=== PATIENT | female | born 1990 | race Caucasian/White ===

== ENCOUNTER 2017-06-11 05:53 | Outpatient (CLI) | payer OTHER ==
[2017-06-11 06:08] VITALS: BP 143/82
[2017-06-11] MEDS ORDERED: SYNTHROID100 MCG PO (07:00)
[2017-06-11] MEDS ORDERED: PRENATAL VITAM1 EA11 PO (07:00)
[2017-06-11 07:10] VITALS: BP 136/60
[2017-06-11 09:43] VITALS: BP 131/66
== END 2017-06-11 11:40 | disposition home or self-care (01) ==
LOC: LDRP-OP 05:53 → 2WEST 05:54 → LDRP-OP 07-09 11:16
DX: O47.1 False labor at or after 37 completed weeks of gestation (principal); Z3A.40 40 weeks gestation of pregnancy; O99.283 Endocrine, nutritional and metabolic diseases complicating pregnancy, third trimester; E06.3 Autoimmune thyroiditis; Z83.3 Family history of diabetes mellitus
CPT/HCPCS: 59025; G0378

== ENCOUNTER 2017-06-12 02:06 | Inpatient (IN) | payer OTHER ==
[~2017-06-12] VITALS: Ht 162.6 cm; Wt 71.0 kg
[2017-06-12] VITALS (28 sets, daily range): BP systolic 102–143; BP diastolic 55–91
[~2017-06-12 02:06] MED LIST: PRENATAL VITAM1 EA11 PO; SYNTHROID100 MCG PO
[2017-06-12 07:43] LABS: BASOPHIL (%) 0.4 % (0-1); BASOPHIL COUNT 0.1 K/uL (0-0.1); EOSINOPHIL COUNT 0.1 K/uL (0-0.3); HEMATOCRIT 37.7 % (36.0-46.0); HEMOGLOBIN 12.8 G/DL (11.9-15.5); IMMATURE GRANULOCYTE (%) 0.7 % (0.0-0.7); LYMPHOCYTE (%) 12.1 % (15-42); LYMPHOCYTE COUNT 1.6 K/uL (1.0-2.8); MCH 29.4 PG (29.0-34.0); MCV 86.7 FL (83-99); MONOCYTE (%) 4.5 % (3-12); MONOCYTE COUNT 0.6 K/uL (0-0.8); NEUTROPHIL (%) 81.3 % (45-76); NEUTROPHIL COUNT 10.5 K/uL (1.8-6.4); PLATELET COUNT 184 K/uL (156-360); RBC DIS.WIDTH-CV 13.3 % (11.8-14.6); RBC DIS.WIDTH-SD 41.1 % (39-53); RED BLOOD COUNT 4.35 M/uL (3.80-5.20); WHITE BLOOD COUNT 12.9 K/uL (4.1-10.2)
[2017-06-12 08:15] LABS: ALBUMIN 3.4 G/DL (3.2-4.8); ALKALINE PHOSPHATASE 188 IU/L (3-129); ALT (GPT) 30 IU/L (3-49); AST (GOT) 19 IU/L (2-34); CHLORIDE 107 MEQ/L (99-109); CREATININE 0.5 MG/DL (0.6-1.3); GFR ESTIMATE (CALCULATED) > 59 mL/min/; GLUCOSE 83 mg/dL (70-99); POTASSIUM 3.9 MEQ/L (3.7-5.4); SODIUM 139 MEQ/L (136-147); TOTAL BILIRUBIN 0.6 MG/DL (0.0-1.0); TOTAL PROTEIN 5.9 G/DL (6.4-8.3); UREA NITROGEN (BUN) 6 mg/dL (9-23); URIC ACID 4.7 mg/dL (3.1-9.2)
[2017-06-12 11:24] LABS: BILIRUBIN NEGATIVE; BLOOD NEGATIVE; COLOR YELLOW ((YELLOW)); GLUCOSE (STRIP) NEGATIVE; KETONES NEGATIVE; LEUKOCYTES NEGATIVE; NITRITE NEGATIVE; PROTEIN (STRIP) NEGATIVE; SPECIFIC GRAVITY 1.016 (1.000-1.030); UROBILINOGEN 0.2 MG/DL (0.2-1.0)
[2017-06-12 11:25] LABS: APPEARANCE CLEAR ((CLEAR)); UCUL ADDED? NO
[2017-06-12 11:52] LABS: UR CREATININE CONCENTRATION 127.5 MG/DL
[2017-06-13] VITALS (7 sets, daily range): BP systolic 108–135; BP diastolic 57–79
[2017-06-14 02:32] VITALS: BP 116/53
[2017-06-14 06:36] LABS: BASOPHIL (%) 0.2 % (0-1); EOSINOPHIL (%) 1.1 % (0-5); EOSINOPHIL COUNT 0.1 K/uL (0-0.3); HEMATOCRIT 27.6 % (36.0-46.0); IMMATURE GRANULOCYTE (%) 0.8 % (0.0-0.7); LYMPHOCYTE (%) 10.6 % (15-42); LYMPHOCYTE COUNT 1.3 K/uL (1.0-2.8); MCH 29.5 PG (29.0-34.0); MCHC 33.3 G/DL (30.0-36.0); MCV 88.5 FL (83-99); MONOCYTE (%) 5.8 % (3-12); MONOCYTE COUNT 0.7 K/uL (0-0.8); NEUTROPHIL (%) 81.5 % (45-76); NEUTROPHIL COUNT 10.3 K/uL (1.8-6.4); PLATELET COUNT 162 K/uL (156-360); RBC DIS.WIDTH-CV 13.9 % (11.8-14.6); WHITE BLOOD COUNT 12.6 K/uL (4.1-10.2)
[2017-06-14 07:19] VITALS: BP 111/57
[2017-06-14 07:20] LABS: HEMOGLOBIN 9.2 G/DL (11.9-15.5); RED BLOOD COUNT 3.12 M/uL (3.80-5.20)
[2017-06-14 11:22] VITALS: BP 118/55
[2017-06-14 14:45] VITALS: BP 130/62
[2017-06-14 19:22] VITALS: BP 134/75
[2017-06-14 22:28] VITALS: BP 120/58
[2017-06-15 04:00] VITALS: BP 126/59
[2017-06-15 07:31] VITALS: BP 130/73
[2017-06-15] MEDS ORDERED: IBUPROFEN800 MG PO (09:29)
[2017-06-15] MEDS ORDERED: ENDOCET 5-3251 EACH PO (09:29)
== END 2017-06-15 15:05 | disposition home or self-care (01) | DRG 765 ==
LOC: LDRP-OP 02:06 → 2WEST 02:07 → LDRP-OP 07-09 12:08
PROVIDERS: Advanced Practice Midwife; Obstetrics & Gynecology
DX: O33.9 Maternal care for disproportion, unspecified (principal); O62.0 Primary inadequate contractions; O62.1 Secondary uterine inertia; O99.214 Obesity complicating childbirth; E66.9 Obesity, unspecified; D62 Acute posthemorrhagic anemia; O99.284 Endocrine, nutritional and metabolic diseases complicating childbirth; E03.9 Hypothyroidism, unspecified; O69.81X0 Labor and delivery complicated by cord around neck, without compression, not applicable or unspecified; Z37.0 Single live birth; O99.02 Anemia complicating childbirth; Z3A.40 40 weeks gestation of pregnancy
CPT/HCPCS: 59025; 80053; 81003; 82570; 84156; 84550; 85025; 86850; 86900; 86901; 88307; C1755; G0378; J0595; J0690; J1885; J2274; J2405; J2795; J3010; J7120; Q0169